=== PATIENT | female | born 1960 | race Caucasian/White ===

== ENCOUNTER → 2023-08-26 15:57 | Outpatient (REF) | payer BC, SELFPAY | LOC: DHCBS MAIN 15:57 | PROVIDERS: ATTENDING PHYSICIAN Internal Medicine Cardiovascular Disease; FAMILY PHYSICIAN Family Medicine | DX: I31.39 Other pericardial effusion (noninflammatory) (principal) | CPT/HCPCS: 93306 ==

== ENCOUNTER → 2024-05-11 12:55 | Outpatient (REF) | payer BC, SELFPAY | LOC: WDC 12:55 | PROVIDERS: ATTENDING PHYSICIAN Obstetrics & Gynecology; FAMILY PHYSICIAN Family Medicine | DX: Z12.31 Encounter for screening mammogram for malignant neoplasm of breast (principal) | CPT/HCPCS: 77063; 77067 ==

== ENCOUNTER → 2024-08-24 15:44 | Outpatient (REF) | payer BC, SELFPAY | LOC: RCS 15:44 | PROVIDERS: ATTENDING PHYSICIAN Internal Medicine Cardiovascular Disease; FAMILY PHYSICIAN Family Medicine | DX: I31.39 Other pericardial effusion (noninflammatory) (principal) | CPT/HCPCS: 93306 ==